=== PATIENT | female | born 1980 ===

== ENCOUNTER 2018-06-30 12:14 | Inpatient (IN) | payer OTHER ==
[~2018-06-30] VITALS: Ht 165.1 cm; Wt 78.0 kg
[~2018-06-30 12:14] MED LIST: SYNTHROID88 MCG
[2018-06-30] MEDS ORDERED: LEVOTHYROXINE125 MCG PO (12:26)
== END 2018-07-01 23:24 | disposition home or self-care (01) | DRG 745 ==
LOC: ER 12:14 → CIR.AMB 16:50 → SEC-K 19:14 → OB/GYN 19:14 → SURG 19:20 → OB/GYN 19:36
PROVIDERS: Obstetrics & Gynecology
PROC: BU4CZZZ Ultrasonography of Uterus and Ovaries (ICD-10-PCS; 2018-06-30)
PROC: 0UDB8ZX Extraction of Endometrium, Via Natural or Artificial Opening Endoscopic, Diagnostic (ICD-10-PCS; principal; 2018-07-01 09:15)
DX: N72 Inflammatory disease of cervix uteri (principal)